=== PATIENT | female | born 1970 | race Caucasian/White ===

== ENCOUNTER 2021-09-09 07:49 | Inpatient (IN) | payer OTHER ==
[~2021-09-09] VITALS: Ht 165.1 cm; Wt 90.7 kg
--- NOTE | ~2021-09-09 | OP ---
[facility] [address] [place] [address] OPERATIVE REPORT Name: ERIK SARAVIA Room: [place] [address] ADM IN M.R.#: [id number] Admission: 09/09/21 Attend Phys: Alice Geller Discharge: Date of : 66 Report #: [id number] THIS REPORT FOR: cc: FAM - No family physician/PCP FAM - No family physician/PCP Felipe Beth MD ~ DATE OF SURGERY: 09/10/2021 PREOPERATIVE DIAGNOSIS: Acute cholecystitis. POSTOPERATIVE DIAGNOSIS: Acute cholecystitis. OPERATION: Laparoscopic cholecystectomy. SURGEON: Felipe Beth MD ANESTHESIA: General. ESTIMATED BLOOD LOSS: Minimal. SPECIMENS: None. DESCRIPTION OF PROCEDURE: After informed consent was obtained, the patient was brought to the operating room and placed supine. SCDs were placed and working, preoperative antibiotics were administered, general anesthesia was induced. The abdomen was prepped and draped in the usual sterile fashion. A 10 mm incision was made above the umbilicus. Fascia was incised and a trocar was placed. Pneumoperitoneum was established. Three right upper quadrant 5 mm ports were placed. Gallbladder was grasped at the fundus and retracted cephalad. Infundibulum was grasped and retracted laterally. I dissected out the cystic duct and the cystic artery. Cystic plate was identified. Cystic duct and artery were clipped and ligated leaving 2 clips on the remaining duct and one on the remaining artery. Gallbladder was then taken off the liver bed with electrocautery. It was placed into an Endopouch and removed. Fascia was then closed with a [id number] 0 Vicryl. Skin was closed with 4-0 Monocryl. Incisions were dressed with Steri-Strips. COMPLICATIONS: None. DISPOSITION: The patient was taken to recovery in satisfactory condition. By: [id number] [id number] Beth MD /nt
[2021-09-09 07:58] VITALS: BP 155/107
[2021-09-09 09:57] LABS: ABSOLUTE BASOPHILS 0.1 thou/uL (0.0-0.2); ABSOLUTE EOSINOPHILS 0.1 thou/uL (0.0-0.7); ABSOLUTE LYMPHOCYTES 1.5 thou/uL (0.8-5.3); ABSOLUTE MONOCYTES 0.7 thou/uL (0.0-1.2); BASOPHILS 0.4 %; EOSINOPHILS 0.9 %; HEMATOCRIT 39.5 % (37.0-47.0); HEMOGLOBIN 13.2 gm/dL (12.0-15.0); LYMPHOCYTES 11.5 %; MCH 28.8 pg (26.0-34.0); MCHC 33.4 g/dL (28.0-37.0); MCV 86.1 fL (80.0-100.0); MPV 6.9 fl. (7.2-11.1); NUCLEATED RBCS 0 /100WBC; PLATELET COUNT* 341 thou/uL (150-400); POLYS 82.2 %; RBC 4.59 mil/uL (4.20-5.00); RDW-CV 13.4 % (10.5-14.5); WBC 13.3 thou/uL (4.0-11.0)
[2021-09-09 10:16] LABS: CALCIUM 9.1 mg/dL (8.5-10.1); CREATININE 0.9 mg/dL (0.6-1.3); POTASSIUM 3.5 mmol/L (3.5-5.1)
[2021-09-09 10:20] LABS: ALBUMIN 3.5 g/dL (3.4-5.0); TOTAL BILIRUBIN 0.2 mg/dL (<0.1-1.0); TOTAL PROTEIN 7.6 g/dL (6.4-8.2)
--- NOTE | 2021-09-09 12:24 | EKG ---
[place] [address] ELECTROCARDIOGRAM REPORT Name: ERIK SARAVIA Room: [facility].#: [id number] Admission: 09/09/21 Attend Phys: Discharge: Date of : 66 Date of Service: 09/09/21954 Report #: [id number] THIS REPORT FOR: //name// [facility] ED Test Date: 2021-09-09 Test Time: 09:55:14 Pat Name: ERIK SARAVIA Department: Room: Gender: Merchandising Director: : 1970 Requested By: Michael Joseph Order Number: [id number] MD: Brad Santana Measurements Intervals [place] Rate: 66 P: 23 MN: 175 QRS: 41 QRSD: 110 T: 60 QT: 425 QTc: 446 Interpretive Statements Sinus rhythm No previous ECG available for comparison Electronically Signed On 09-09-2021 12:24:27 RUG DRY ROOM ATTENDANT by Brad Santana [email or web address] <ELECTRONICALLY SIGNED> By: Brad Santana MD, [facility] 09/09/21 1224 [id number] Brad Santana MD, FACC /EPI
[2021-09-09 16:50] VITALS: BP 104/62
[2021-09-09 21:19] VITALS: BP 98/53
[2021-09-10] VITALS (7 sets, daily range): BP systolic 102–141; BP diastolic 53–76
[2021-09-10 17:27] LABS: CALCIUM 8.6 mg/dL (8.5-10.1); CREATININE 0.8 mg/dL (0.6-1.3); POTASSIUM 4.2 mmol/L (3.5-5.1)
[2021-09-10 17:30] LABS: MAGNESIUM 2.2 mg/dL (1.8-2.4); PHOSPHORUS* 3.9 mg/dL (2.5-4.9)
[2021-09-11 00:22] VITALS: BP 97/53
[2021-09-11 04:55] LABS: CALCIUM 8.7 mg/dL (8.5-10.1); CREATININE 0.7 mg/dL (0.6-1.3); POTASSIUM 4.3 mmol/L (3.5-5.1)
[2021-09-11 08:00] VITALS: BP 115/70
[2021-09-11] MEDS ORDERED: HYDROCODON-ACE1 EAC7 PO (15:15)
[2021-09-11] MEDS ORDERED: ONDANSETRON HCL4 M2 PO (15:15)
[2021-09-11 15:32] VITALS: BP 115/70
--- NOTE | 2021-09-12 17:07 | PATH ---
[address] [address] PATHOLOGY RPT PROCEDURE Name: ERIK SARAVIA Room: [address] IN M.R.#: [id number] Admission: 09/09/21 Date of : 66 Discharge: 09/11/21 Report #: [id number] Path Case #: [id number] [facility] Accession Number: [id number] . 01 Material submitted: . gallbladder - GALLBLADDER AND CONTENTS . 01 Clinical history: . LAPAROSCOPIC CHOLECYSTECTOMY- SJ . 02 Diagnosis: Gallbladder and contents: - Chronic cholecystitis with prominence of eosinophils of unknown significance, cholesterolosis and cholelithiasis. (TRESSA:venus; 09/12/2021) QMS 09/12/2021 1302 Local . 02 Electronically signed: . Kg Stapleton MD, Pathologist NPI- [id number] . 01 Gross description: . Fixative: Formalin Labeled: Gallbladder and contents Specimen received: Intact gallbladder Dimensions: 8.6 x 3.1 3.0 cm Serosa: [place] Lymph node: 1.3 x 1.0 x 0.5 cm Mucosa: Velvety, bile-stained with mild, diffuse cholesterolosis Average wall thickness: 0.2 cm Calculi: Identified displaying a bright yellow and bosselated appearance Abnormalities: None identified . Croze Machine Operator body, fundus, and the cystic duct margin in cassette A1. The lymph node is bisected and submitted in cassette A2. (CAA; 09/11/2021) QA/QA 09/11/2021 1848 Local . 02 Pathologist provided ICD-10: K80.10 . 02 CPT . 298979 Specimen Comment: A courtesy copy of this report has been sent to [phone] Specimen Comment: [phone] Specimen Comment: Report sent to / DR WEEKS Performed at: [address] [place] [address] PATHOLOGY RPT PROCEDURE Name: ERIK SARAVIA Room: [address] IN [facility]#: [id number] Admission: 09/09/21 Date of : 66 Discharge: 09/11/21 Report #: [id number] Path Case #: [id number] [facility] [place] [address] [place] [address] [address], [place], [place] [id number] MD Reginald Villarreal MD Phone: [phone] Performed at: 02 [facility] [address], [place], [place] [id number] MD Kg Stapleton MD Phone: [phone]
== END 2021-09-11 16:06 | disposition home or self-care (01) | DRG 419 ==
LOC: M.ERS 07:49 → M.TBA-ER 13:11 → M.3W 09-10 19:56
PROVIDERS: Emergency Medicine Emergency Medical Services; ADMIT Internal Medicine; ATTEND Internal Medicine
PROC: 0FT44ZZ Resection of Gallbladder, Percutaneous Endoscopic Approach (ICD-10-PCS; principal; 2021-09-10)
DX: K81.0 Acute cholecystitis (principal); I10 Essential (primary) hypertension; F41.9 Anxiety disorder, unspecified; G56.00 Carpal tunnel syndrome, unspecified upper limb; G62.9 Polyneuropathy, unspecified; F32.A Depression, unspecified; K21.9 Gastro-esophageal reflux disease without esophagitis; K44.9 Diaphragmatic hernia without obstruction or gangrene; R10.0 Acute abdomen; K37 Unspecified appendicitis; K25.9 Gastric ulcer, unspecified as acute or chronic, without hemorrhage or perforation; D72.829 Elevated white blood cell count, unspecified; F32.9 Major depressive disorder, single episode, unspecified; Z20.822 Contact with and (suspected) exposure to COVID-19; Z86.16 Personal history of COVID-19; Z88.6 Allergy status to analgesic agent; Z79.899 Other long term (current) drug therapy; Z87.891 Personal history of nicotine dependence

== ENCOUNTER 2021-09-12 22:42 | Emergency (ER) | payer OTHER ==
[~2021-09-12 22:42] MED LIST: HYDROCODON-ACE1 EAC7 PO; ONDANSETRON HCL4 M2 PO
== END 2021-09-12 23:11 | disposition left against medical advice (07) ==
LOC: M.ERS 22:42
DX: R10.9 Unspecified abdominal pain (principal); Z53.21 Procedure and treatment not carried out due to patient leaving prior to being seen by health care provider